=== PATIENT | female | born 1990 | race Caucasian/White ===

== ENCOUNTER 2016-12-03 18:26 | Emergency (ER) | payer MEDICAID ==
[~2016-12-03] VITALS: Ht 162.6 cm; Wt 113.6 kg
[~2016-12-03 18:26] MED LIST: DOCU-41 PO; Docusate Sodium PO; FERR325C PO; HYDR-4003 PO; Hydrocodone/Acetaminophen PO; IBUP-1827 PO; Ibuprofen PO; PREN-100 PO
[2016-12-03 18:36] VITALS: BP 158/100; PULSE 88; RESP 16; O2SAT 100
[2016-12-03 20:45] LABS: APPEARANCE,URINE CLEAR (CLEAR,HAZY); COLOR,URINE YELLOW (YELLOW); OCCULT BLOOD,URINE NEGATIVE (NEGATIVE); UROBILINOGEN,URINE NORMAL (NORMAL)
[2016-12-03 21:15] LABS: BASOPHILS % (AUTO) 0.3 % (0-3); EOSINOPHILS % (AUTO) 0.6 % (0-5); Mean Corpuscular Hemoglobin 27.8 pg (27.0-35.0); Mean Corpuscular Volume 84.9 fL (81-100); NEUTROPHILS % (AUTO) 78.7 % (40-74); Platelet Count 311 bil/L (150-400)
--- NOTE | 2016-12-03 21:16 | ED.REPORT ---
HPI-Dizziness / Weakness Date of Service Dec 03, 2016 ED Provider: Radhames Dunbar MD Pt is a 26 y/o healthy female presenting to the ED c/o intermittent near- syncope onset 3 days ago. She c/o associated dizziness, nausea, nasal congestion , ear pressure. She has been experiencing significant stress and anxiety recently due to family issues. Modifying factors are unclear but her dizziness seems to be worse while sitting. Head movement causes nausea but does not cause dizziness. She denies vomiting, diarrhea, any pain, spinning sensation. She is also concerned that her Mirena IUD is not in the correct place. Nursing Notes Stated Complaint: NAUSEA, DIZZY Chief Complaint: General Complaint Nursing Notes Reviewed: Yes Allergies: Coded Allergies: Adhesives (Verified Allergy, Mild, rash, 09/05/14) occasionally with bandaids gets rash - thinks its from adhesive latex (Verified Allergy, Mild, rash, 09/05/14) unsure if it is really latex, but only with gloves and on hands - no reaction to condoms or balloons No Known Allergies (Verified Allergy, Unknown, 09/05/14) Scheduled Docusate Sodium (Colace) 100 Mg Capsule 100 MG PO BID Ferrous Sulfate (Iron) 325 Mg Capsule.er 325 MG PO DAILY Vits #90/Iron Fum/FA ( Formula Tablet) 1 Each Tablet 1 EACH PO DAILY Scheduled PRN ([Docusate Sodium]) 100 MG CAPSULE 100 MG PO BID PRN PRN For Constipation ([Hydrocodone/Acetaminophen]) 1 TAB TABLET 1-2 TAB PO Q4-6H PRN PRN For Pain ([Ibuprofen]) 800 MG TABLET 600 MG PO Q6H PRN PRN For Pain Hydrocodone-Acetaminophen 5-325 mg (Hydrocodone-Acetaminophen 5-325 mg) 1 Each Tablet 1 TABLET PO Q12H PRN PRN For Pain Hydroxyzine Pamoate (HydrOXYzine Pamoate) 25 Mg Capsule 25 MG PO TID PRN PRN For Agitation Ibuprofen (Ibuprofen) 600 Mg Tablet 600 MG PO Q6H PRN PRN For Mild Pain General Time Seen by MD: 21:13 Chief Complaint Lightheaded Hx Obtained From: Patient Arrived By: Walk-in Onset Occurred: 3 days ago Symptom Duration: Since onset Severity: Current: No pain currently Severity: Maximum: No pain Pertinent Negative: Exacerbated by nothing, Relieved by nothing Similar Sx Previous: No Past Medical History Past Medical History Denies Past Surgical History IUD Smoking History Never Smoker Ambulatory Status Independent Review of Systems Ears / Nose / Throat: Reports: Earache left, Earache right, Nasal congestion Cardiovascular: Denies: Chest pain GI: Reports: Nausea, Denies: Abdominal pain, Constipation, Diarrhea, Vomiting Neurologic: Reports: Dizziness, Lightheaded, Denies: Spinning sensation Psychiatric: Reports: Anxiety, Stress Complete sys rev & neg: except as marked. Physical Exam Initial Vital Signs Vital Signs (First) Date Time Temp Pulse Resp B/P Pulse Ox O2 Delivery O2 Flow Rate FiO2 12/03/16 18:36 36.3 88 16 158/100 100 Room Air Initial VS: Reviewed Abdomen / GI: Soft, Non-tender Extremities: Vascular intact, Neuro intact, No swelling, No tenderness Skin: Warm, Dry, No cyanosis Psychiatric: Mood/affect normal, Behavior normal, Normal thought content General/Constitutional: Awake, Alert, No acute distress, Well appearing, Well developed, Well hydrated, Well nourished, Cooperative, Not toxic appearing Appearance / Presentation: Positive: Obese Head / Eyes: Atraumatic, Normocephalic, PERRL, EOMI, No nystagmus, No periorbital redness, No periorbital swelling, No photophobia, No scleral icterus Respiratory / Chest: Atraumatic, Breath sounds NL, Breath sounds = bilat, No respiratory distress, No rales, No rhonchi, No wheezing, No retractions, No stridor, No chest tenderness, No chest wall deformity, No crepitus Cardiovascular: Heart rate NL, Regular rhythm, Heart sounds NL, No gallop, No murmurs, No rubs, Cap refill not delayed, Peripheral circulation NL Neurologic: Oriented X3, Speech NL, No motor deficits, No sensory deficits, CN II - XII intact, Cerebellar NL, Memory NL, Gait NL No tandem walk [id number] normal ENT: Atraumatic, Airway patent, Mucous membranes moist, Pharynx NL, Tympanic membs NL Neck: Atraumatic, Supple, No meningismus, Full range of motion, No adenopathy, Thyroid NL Interpretation & Diagnostics Lab Results Interpretation Result Diagram: 12/03/16205712/03/162057 Test 12/03/16 20:25 12/03/16 20:58 Urine Color Yellow (YELLOW) Urine Appearance Clear (CLEAR,HAZY) Urine pH 6.0 (5.0-8.0) Urine Specific [place] 1.010 (1.003-1.035) Urine Protein Negativemg/dL (NEG,TRACE) Urine Glucose (UA) Negativemg/dL (NEGATIVE) Urine Ketones Negativemg/dL (NEGATIVE) Urine Occult Blood Negative (NEGATIVE) Urine Nitrite Negative (NEGATIVE) Urine Bilirubin Negative (NEGATIVE) Urine Urobilinogen Normalmg/dL (NORMAL) Urine Leukocyte Esterase Negative (NEGATIVE) Urine RBC 0-2/hpf (0-2) Urine WBC 0-5/hpf (0-5) Urine Epithelial Cells Occasional/hpf (NONE-MOD) Urine Crystals None seen (NONE SEEN) Urine Bacteria None/hpf (NONE-FEW) Urine Hyaline Casts None/lpf (NONE) Urine Granular Casts None seen (NONE SEEN) Urine Waxy Casts None seen (NONE SEEN) Urine Red Blood Cell Casts None seen (NONE SEEN) Urine White Blood Cell Casts None seen (NONE SEEN) Urine Mucus None seen (None Seen) Urine Trichomonas None seen (NONE SEEN) Urine Yeast None (NONE SEEN) Urinalysis Comment None Urine Culture Reflexed Not indicated White Blood Count 11.9th/mm3 (3.8-10.1) Red Blood Count 4.85mil/mm3 (3.90-5.20) Hemoglobin 13.5g/dL (12.0-15.6) Hematocrit 41.2% (35.0-46.0) Mean Corpuscular Volume 84.9fL (81-100) Mean Corpuscular Hemoglobin 27.8pg (27.0-35.0) Mean Corpuscular Hemoglobin Concent 32.8% (32.0-37.0) Red Cell Distribution Width 12.9% (12.3-15.4) Platelet Count 311bil/L (150-400) Neutrophils (%) (Auto) 78.7% (40-74) Lymphocytes (%) (Auto) 14.1% (14-46) Monocytes (%) (Auto) 6.0% (4-12) Eosinophils (%) (Auto) 0.6% (0-5) Basophils (%) (Auto) 0.3% (0-3) Sodium Level 139mEq/L (134-144) Potassium Level 3.9mEq/L (3.5-5.2) Chloride Level 100mEq/L (97-108) Carbon Dioxide Level 27mmol/L (18-29) Blood Urea Nitrogen 9mg/dL (6-20) Creatinine 0.66mg/dL (0.57-1.00) Estimat Glomerular Filtration Rate 156mL/min (>59) Glucose Level 135mg/dL (60-99) Calcium Level 9.0mg/dL (8.5-10.1) Magnesium Level 2.1mg/dL (1.6-2.6) Total Bilirubin 0.2mg/dL (0.0-1.2) Aspartate Amino Transf (AST/SGOT) 15U/L (0-50) Alanine Aminotransferase (ALT/SGPT) 13U/L (0-32) Alkaline Phosphatase 76U/L (25-150) Total Protein 7.6g/dL (6.4-8.4) Albumin 4.5g/dL (3.4-5.0) Hold Adame Top Tube Received (Received) Lab Results Interpretation: Upreg: neg Re-Eval/Medical Decision Re-Evaluation/Progress : Time of Eval: 21:28 Re-Evaluation/Progress Note: Pt rechecked. Informed pt of plan for treatment. Pt understands and agrees with plan for treatment. F/U and RTER warnings given. All questions addressed. Counseled Regarding: Diagnosis, Lab results, Need for follow-up, When/why to return to ED Patient Discharge & Departure Impression: Primary Impression: Dizziness Additional Impression: Situational stress Disposition: Home Discharge Condition All VS Reviewed: Yes Condition: Stable Additional Instructions: ED evaluation included interview exam and labs. No serious cause for dizziness was found. It may be due to an upper respiratory infection and will get better soon. We discussed the stressors in your life at present and the importance of talking to family/friends and or a counsellor. May use hydroxyzine 1 every 8 hours as needed for agitation. Call to get your insurance re-instated and make an appointment for primary care and counselling. Referrals: Helen Rock MD (PCP) [facility] Scribe Attestation Portions of this note were transcribed by Arturo Curry. I, Dr. Dunbar personally performed the history, physical exam and medical decision-making; I reviewed and confirmed the accuracy of the information in the transcribed note. Signed by Clement Jaimes, 12/03/162129 Helen Rock MD, Donald L MD Dec 03, 2016 21:16 ARTURO CURRY Dec 03, 2016 21:28
[2016-12-03] MEDS ORDERED: _Ondansetron ODT 4 mg Tablet PO PRN (21:35)
[2016-12-03 21:36] LABS: Magnesium 2.1 mg/dL (1.6-2.6)
[2016-12-03] MEDS ORDERED: HYDR-3797 PO (21:42)
[2016-12-03 22:18] VITALS: BP 125/94; PULSE 90; RESP 16; O2SAT 97
== END 2016-12-03 22:19 | disposition home or self-care (01) ==
LOC: SED 18:26
DX: R42 Dizziness and giddiness (principal); F43.0 Acute stress reaction; R55 Syncope and collapse; R11.0 Nausea; R09.81 Nasal congestion; Z97.5 Presence of (intrauterine) contraceptive device